=== PATIENT | male | born 1950 | race Caucasian/White ===

== ENCOUNTER 2018-04-05 13:56 | Outpatient (CLI) | payer MEDICARE, OTHER ==
--- NOTE | 2018-04-05 14:42 | RAD ---
LEFT HIP RADIOGRAPHS TWO VIEWS: Date: 04-05-18 Provided Clinical History: Left hip pain. FINDINGS: There is no evidence for fracture or other acute osseous abnormality. Alignment appears anatomic. Lef t hip joint space appears preserved. No lytic or blastic lesions are seen. IMPRESSION: No evidence for an acute osseous abnormality or significant arthropathy. POS: [facility]
== END 2018-04-05 13:57 | disposition home or self-care (01) ==
LOC: BICRAD 13:56
PROVIDERS: ATTEND Internal Medicine Rheumatology
DX: M70.62 Trochanteric bursitis, left hip (principal)